=== PATIENT | male | born 1955 | race Caucasian/White ===

== ENCOUNTER 2020-03-12 12:43 | Emergency (ER) | payer OTHER ==
[~2020-03-12] VITALS: Ht 175.3 cm; Wt 92.0 kg
[~2020-03-12 12:43] MED LIST: ASPI-482 PO; CHOL400C2 PO; FENO54TA PO; GARL1CAP3 PO; MULT1TAB52 PO; OMEP20CA16 PO; RAMI5CAP50 PO; SIMV20TA18 PO
--- NOTE | 2020-03-12 13:54 | RAD ---
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 TECHNIQUE: Multi-detector row CT images were obtained of the head without the use of IV contrast. All CT scans performed at this facility utilize dose optimization techniques as appropriate to the exam, including the following: Automated exposure control and adjustment of the mA and/or KV according to patient size (this includes techniques or standardized protocols for targeted exams where dose is indication/reason for exam). COMPARISON: None FINDINGS: BRAIN PARENCHYMA: No evidence of acute intraparenchymal hemorrhage or infarct. No abnormal parenchymal density or mass. VENTRICLES & EXTRA-AXIAL SPACES: Ventricles are within normal limits. Basilar cisterns are patent. No pathologic extra-axial fluid collection or mass. ORBITS: Orbital contents are unremarkable. SINUSES: Visualized paranasal sinuses and mastoid air cells are clear. OSSEOUS & SOFT TISSUES: Calvarium and skull base are intact. IMPRESSION: No acute intracranial pathology. 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 TECHNIQUE: Multi-detector row CT images were obtained through the maxillofacial region with and without the use of IV contrast. Post-processing reconstructed images were obtained for interpretation. All CT scans performed at this facility utilize dose optimization techniques as appropriate to the exam, including the following: Automated exposure control and adjustment of the mA and/or KV according to patient size (this includes techniques or standardized protocols for targeted exams where dose is indication/reason for exam). IV CONTRAST: Administered COMPARISON: Noncontrast head CT same day. FINDINGS: OSSEOUS: No evidence of fracture or bone destruction. VISUALIZED INTRACRANIAL STRUCTURES: Unremarkable. ORBITS: Orbital contents are unremarkable.. SINUSES: Visualized paranasal sinuses and mastoid air cells are clear. SOFT TISSUES: There is asymmetric soft tissue swelling around the right orbit with a 3 mm horizontal oriented radiodense opacity at the skin surface of the right infraorbital soft tissues best illustrated on sagittal image 37 and 38 (and coronal image 5 of 59) that could represent an embedded foreign body. IMPRESSION: 1. No acute facial fractures. 2. Right periorbital soft tissue contusion with a possible 4 mm embedded radiopaque foreign body below the right eyelid as described. Electronically signed by: Meredith Snyder MD (03/12/2020 1:51 PM) [id number]
[2020-03-12] MEDS ORDERED: DIPH,PERTUSS(ACELL),TET VAC/PF 0.5 ML SYRINGE. VAX IM ONE (14:00)
[2020-03-12] MEDS ORDERED: LIDOCAINE 1% Multi-Dose 20 ML VIAL. ONE (14:05)
[2020-03-12] MEDS ORDERED: TETRACAINE 0.5% OPHTH SOLUTION 4ML BOTTLE. OD ONE (14:15)
[2020-03-12] MEDS ORDERED: FLUORESCEIN OPHTH TEST STRIP. ONE (14:16)
[2020-03-12] MEDS ORDERED: FLUORESCEIN OPHTH TEST STRIP. OD ONE (14:30)
[2020-03-12 14:58] VITALS: BP 150/85
--- NOTE | 2020-03-12 14:59 | PHYS DOC ---
Past Medical History Past Medical History: Anxiety, High Cholesterol, Hypertension Past Surgical History: Cholecystectomy, Knee Replacement Additional Past Surgical Histo: LT ROTATOR CUFF Smoking Status: Current Some Day Smoker Additional Information: SMOKES A CIGAR OCCASIONALLY. Alcohol Use: Occasionally General Adult EDM: Chief Complaint: LACERATION/AVULSION HPI: HPI: Patient is a 64 year old male who presented to ER today for evaluation of right eye injury. Patient said he was using a finish grinder to cut off a piece of metal from the gutter of his house when the metal wheel of the finish grinder broke off, hit him on the right side of his face, eye, broke his eye glasses, patient did not fall down, no loss of consciousness. Patient is not up-to-date on his tetanus vaccination, patient is not on any blood thinner besides a baby aspirin a day. Patient has history of high cholesterol and hypertension. Review of Systems: Review of Systems: Constitutional: Denies fever or chills. [] Eyes: Positive for right eye blurry, pain. HENT: Denies nasal congestion or sore throat. [] Respiratory: Denies cough or shortness of breath. [] Cardiovascular: Denies chest pain or edema. [] GI: Denies abdominal pain, nausea, vomiting, bloody stools or diarrhea. [] : Denies dysuria. [] Musculoskeletal: Denies back pain or joint pain. [] Integument: Denies rash. [] Neurologic: Positive for headache, no focal weakness or sensory changes. [] Endocrine: Denies polyuria or polydipsia. [] Lymphatic: Denies swollen glands. [] Psychiatric: Denies depression or anxiety. [] Heart Score: Risk Factors: Risk Factors: DM, Current or recent (<one month) smoker, HTN, HLP, family history of CAD, obesity. Risk Scores: Score 0 - 3: 2.5% MACE over next 6 weeks - Discharge Home Score 4 - 6: 20.3% MACE over next 6 weeks - Admit for Clinical Observation Score 7 - 10: 72.7% MACE over next 6 weeks - Early Invasive Strategies Current Medications: Current Medications Medications (Trade) Dose Ordered Sig/Kika Start Time Stop Time Status Last Admin Dose Admin Diphtheria/ Tetanus/Acell Pertussis (ADACEL TDap SYRINGE) 0.5 ml ONCE ONCE 03/12/20 14:00 5/3/20 14:01 DC 03/12/20 13:55 0.5 ML Fluorescein Sodium (Ful-Shannan) 1 strip STK-MED ONCE 03/12/20 14:16 03/12/20 14:16 DC Lidocaine HCl (Lidocaine 1% 20ml Vial) 20 ml STK-MED ONCE 03/12/20 14:05 03/12/20 14:05 DC Tetracaine HCl (Tetracaine) 2 drop 1X ONCE 03/12/20 14:15 03/12/20 14:16 DC 03/12/20 14:07 2 DROP Allergies: Allergies: Allergies Coded Allergies Type Severity Reaction Last Updated Verified No Known Drug Allergies 08/25/14 No Physical Exam: PE: Constitutional: Well developed, well nourished, no acute distress, non-toxic appearance. [] HENT: Normocephalic, bilateral external ears normal, oropharynx moist, no oral exudates, nose normal. There is skin abrasion and about 3 cm irregular shape laceration at the right periorbital area just below the right eye lid. Eyes: PERRLA, EOMI, right conjunctiva with subconjunctival hemorrhage, there is blood in the anterior chamber of right eye, there is cornea abrasion , dye uptak e seen by wood lamp exam, There is no eyelid laceration. Neck: Normal range of motion, no tenderness, supple, no stridor. [] Cardiovascular:Heart rate regular rhythm, no murmur [] Lungs & Thorax: Bilateral breath sounds clear to auscultation [] Abdomen: Bowel sounds normal, soft, no tenderness, no masses, no pulsatile masses. [] Skin: Warm, dry, no erythema, no rash. [] Back: No tenderness, no CVA tenderness. [] Extremities: No tenderness, no cyanosis, no clubbing, ROM intact, no edema. [] Neurologic: Alert and oriented X 3, normal motor function, normal sensory function, no focal deficits noted. [] Psychologic: Affect normal, judgement normal, mood normal. [] Current Patient Data: Vital Signs: Vital Signs Date Time Temp Pulse Resp B/P (MAP) Pulse Ox O2 Delivery O2 Flow Rate FiO2 03/12/20 13:04 98.0 76 16 153/79 (103) 100 Room Air 98.0 EKG: EKG: [] Radiology/Procedures: Radiology/Procedures: [address] [place] [address] IMAGING REPORT Signed PATIENT: LUCIANO WATSON OACCOUNT: [id number] : 1955 LOCATION: ER AGE: 64 SEX: M EXAM STATUS: REG ER ORD. PHYSICIAN: ASHLEY WORTHY DO REASON: a metalizer field operation wheel broke, hit right side eye, headache, facial pain PROCEDURE: CT HEAD AND MAXILLOFACIAL WO EXAM: CT Head without IV contrast INDICATION: Headache after a metalizer field operation wheel broke and hit his right eye. TECHNIQUE: Multi-detector row CT images were obtained of the head without the use of IV contrast. All CT scans performed at this facility utilize dose optimization techniques as appropriate to the exam, including the following: Automated exposure control and adjustment of the mA and/or KV according to patient size (this includes techniques or standardized protocols for targeted exams where dose is indication/reason for exam). COMPARISON: None FINDINGS: BRAIN PARENCHYMA: No evidence of acute intraparenchymal hemorrhage or infarct. No abnormal parenchymal density or mass. VENTRICLES & EXTRA-AXIAL SPACES: Ventricles are within normal limits. Basilar cisterns are patent. No pathologic extra-axial fluid collection or mass. ORBITS: Orbital contents are unremarkable. SINUSES: Visualized paranasal sinuses and mastoid air cells are clear. OSSEOUS & SOFT TISSUES: Calvarium and skull base are intact. IMPRESSION: No acute intracranial pathology. EXAM: CT Maxillofacial with and without IV contrast INDICATION: Headache after a metalizer field operation wheel broke and hit his right eye. TECHNIQUE: Multi-detector row CT images were obtained through the maxillofacial region with and without the use of IV contrast. Post-processing reconstructed images were obtained for interpretation. All CT scans performed at this facility utilize dose optimization techniques as appropriate to the exam, including the following: Automated exposure control and adjustment of the mA and/or KV according to patient size (this includes techniques or standardized protocols for targeted exams where dose is indication/reason for exam). IV CONTRAST: Administered COMPARISON: Noncontrast head CT same day. FINDINGS: OSSEOUS: No evidence of fracture or bone destruction. VISUALIZED INTRACRANIAL STRUCTURES: Unremarkable. ORBITS: Orbital contents are unremarkable.. SINUSES: Visualized paranasal sinuses and mastoid air cells are clear. SOFT TISSUES: There is asymmetric soft tissue swelling around the right orbit with a 3 mm horizontal oriented radiodense opacity at the skin surface of the right infraorbital soft tissues best illustrated on sagittal image 37 and 38 (and coronal image 5 of 59) that could represent an embedded foreign body. IMPRESSION: 1. No acute facial fractures. 2. Right periorbital soft tissue contusion with a possible 4 mm embedded radiopaque foreign body below the right eyelid as described. Electronically signed by: Flash Snyder MD (03/12/2020 1:51 PM) [id number] DICTATED and SIGNED BY: FLASH SNYDER MD DATE: 03/12/20 1355 Course & Med Decision Making: Course & Med Decision Making Pertinent Labs and Imaging studies reviewed. (See chart for details) Discussed with Dr. Aman Carranza,OPTHALMOLOGIST, recommended to transfer patient to . [facility] with [facility] BY DR. REGINALDO CONKLIN for transfer to the ER there. Patient declined ambulance transfer. He said his will take him there. At 1530, patient said his wanted him to be transferred there by ambulance. Dragon Disclaimer: Dragon Disclaimer: This electronic medical record was generated, in whole or in part, using a voice recognition dictation system. Departure Departure Impression: Primary Impression: Hyphema of right eye Additional Impressions: Corneal abrasion, right Laceration of face Traumatic subconjunctival hemorrhage of right eye Disposition: 02 TRANSFER [facility] (TRANSFERRED PATIENT TO [facility]EPTED BY DR. REGINALDO CONKLIN. ) Condition: STABLE Referrals: CYDNEY MILLER MD (PCP) ASHLEY WORTHY DO March 12, 2020 14:59
== END 2020-03-12 15:45 | disposition short-term general hospital (02) ==
LOC: ER 12:43
DX: H11.31 Conjunctival hemorrhage, right eye (principal); H21.01 Hyphema, right eye; S01.81XA Laceration without foreign body of other part of head, initial encounter; R51 Headache; I10 Essential (primary) hypertension; E78.00 Pure hypercholesterolemia, unspecified; F17.210 Nicotine dependence, cigarettes, uncomplicated; W29.0XXA Contact with powered kitchen appliance, initial encounter; Y93.89 Activity, other specified; Y92.89 Other specified places as the place of occurrence of the external cause; Y99.8 Other external cause status
CPT/HCPCS: 36415; 70450; 70486; 87040; 90471; 90715; 99285-25